=== PATIENT | male | born 1990 | race Caucasian/White ===

== ENCOUNTER 2016-08-18 08:01 | Inpatient (IN) | payer OTHER ==
--- NOTE | ~2016-08-18 | HP ---
Unit #: [id number] #: [id number] Patient: SILAS MINA [id number] [facility] [address] [facility]. [place], [place] [address] [id number] I MR#: [id number] NAME: SILAS MINA ROOM: 216 Age: 26 Sex: M Admission Date: 08/18/2016 : 1990 Attending Physician: Silvia Perez M.D. Primary Care Physician: Jennifer Redding M.D. HISTORY AND PHYSICAL CHIEF COMPLAINT Agitation, hallucination. HISTORY OF PRESENT ILLNESS Mr. Dowling is a 26-year-old male who is being evaluated in room 216 at [facility]. Patient is not able to provide any history. He does open his eyes but very agitated when he wakes up. Otherwise, he sleeps. Patient received Haldol and Ativan in [facility] ER, most likely that is why he is lethargic at this time. No family member in the room at this time. The history I know is from ER. The patient's father brought him to [facility] ER because of agitation and hallucination, has not been able to sleep, and excessive sweating. The patient was at [facility] for drug rehab. He was started on propranolol, possible tachycardia and also on Zoloft. The patient was discharged a week ago or so, although this information is per ER notes. I do not have any history at this time. PAST MEDICAL HISTORY 1. Polysubstance abuse. 2. Tobacco abuse. 3. Questionable tachycardia. HOME MEDICATIONS 1. Propranolol 10 mg t.i.d. 2. Zoloft 50 mg nightly. SOCIAL HISTORY Patient lives at home with his father. He does have a history of smoking one to two packs per day. No alcohol abuse. Patient does have a history of polysubstance abuse. PRIMARY CARE PROVIDER Dr. Redding. PAST SURGICAL HISTORY None. ALLERGIES No known drug allergies. FAMILY HISTORY Patient's father has history of alcohol abuse. He quit in 1995. REVIEW OF SYSTEMS Unit #: [id number] #: [id number] Patient: SILAS MINA Not obtainable at this time. PHYSICAL EXAMINATION GENERAL: Patient is lying in bed. There is no respiratory distress. He does wake up but becomes very agitated when he wakes up. He is not really answering any questions. VITAL SIGNS: Blood pressure is 105/50, respiratory rate 20, pulse 70, temperature 97.8, oxygen saturation is 100%. HEENT: Normocephalic. NECK: Supple. CHEST: Fair air entry. No additional sounds. CARDIOVASCULAR: S1, S2 positive. Regular rhythm. ABDOMEN: Soft. EXTREMITIES: Negative edema. CENTRAL NERVOUS SYSTEM: Patient is lethargic, most likely due to Ativan and Haldol. SKIN: Patient does have multiple excoriations all throughout the skin. DIAGNOSTIC STUDIES LABORATORY: WBC 28, hemoglobin 14.2, hematocrit 41.2, and platelet count 289,000. Sodium 141, potassium 2.8, chloride 104, BUN 24, creatinine 2. AST 126, ALT 125. Alcohol less than 5. CPK 3260. Troponin less than 0.5. Urinalysis shows 2+ bacteria. Urine drug screen is positive for amphetamines and opiates. IMAGING: Chest x-ray was done which shows no acute appearing bony abnormality. Heart size is normal. Lung volumes are normal. No airspace disease. CARDIOVASCULAR: EKG shows S1, S2 positive, seems to be regular rhythm. ASSESSMENT Patient is being admitted to med/surg unit at [facility] with a diagnosis of: 1. Acute renal failure. 2. Rhabdomyolysis. 3. Urinary tract infection. 4. Severe hypokalemia. 5. Agitation/hallucination. 6. Possible drug withdrawal. 7. Tobacco abuse. 8. History of polysubstance abuse. 9. Skin rash, possible neurodermatitis. PLAN Plan is admit to med/surg. IV Rocephin 1 g q.24 hours is being started. Blood cultures will be done. Urine culture is pending. Dr. Grimm is to be consulted. IV hydration will be started. Labs will be repeated tomorrow morning. Potassium protocol is being started. Dr. Grant is being consulted from drug withdrawal point of view. Home medications have been reviewed and adjusted. Will continue to observe closely. Please refer to progress note for further orders. Dictated by Silvia Perez M.D. Unit #: [id number] #: [id number] Patient: SILAS MINA SYED/hien TD: 08/18/2016 16:28 JOB #: [id number] HISTORY AND PHYSICAL Page 1 of 1 X Silvia Perez MD HISTORY AND PHYSICAL
--- NOTE | ~2016-08-18 | DS ---
Unit #: [id number] #: [id number] Patient: SILAS MINA [id number] [address] [address] [id number] I MR#: [id number] NAME: SILAS MINA ROOM: 216 Age: 26 Sex: M Admission Date: 08/18/2016 : 1990 Discharge Date: 08/22/2016 Attending Physician: Silvia Perez M.D. Primary Care Physician: Jennifer Redding M.D. DISCHARGE SUMMARY The patient left against medical advice. FINAL DIAGNOSES 1. Staph aureus bacteremia. 2. Acute renal failure. 3. Hypokalemia. 4. Multiple skin lesions, possible neurodermatitis. 5. Intravenous drug abuse. HOSPITAL COURSE The patient was admitted to hospital. The patient's father brought him to [facility] ER because of agitation and hallucination and has not been able to sleep and excessive sweating. The patient was admitted to Med/Surg unit and IV antibiotics were started. Infectious Disease was consulted. The patient has a history of polysubstance abuse, IV heroin. The patient had some acute kidney injury and rhabdomyolysis. IV fluids were started. The patient's blood cultures were positive for Staph aureus which was most likely related to his IV drug abuse. The patient was started on antibiotics. On 08/22/16, the patient signed out against medical advice. Dictated by... Emily Norton TD: 09/14/2016 11:19 JOB #: [id number] DISCHARGE SUMMARY Page 1 of 1 X Silvia Perez MD X DISCHARGE SUMMARY
--- NOTE | ~2016-08-18 | CO ---
Unit #: [id number] #: [id number] Patient: NITESH VILLA [id number] [facility] [address] [place], [place] [address] [id number] I MR#: [id number] NAME: NITESH VILLA ROOM: 216 Age: 26 Sex: M Admission Date: 08/18/2016 : 1990 Attending Physician: Silvia Perez M.D. Primary Care Physician: Jennifer Redding M.D. Consultation Date: 08/21/2016 CONSULTATION REPORT REASON FOR CONSULTATION Followup. DISCUSSION Mr. Nitesh Villa is a 26-year-old male seen in room 216 bed 1 on 08/21/16 at [facility]. Patient reported that he is feeling better, denied any hallucination or any thoughts of harming self or others, repots able to sleep good, decrease in anxiety/agitation, no side effects of medication. Patient was admitted with opiate withdrawal, rhabdomyolysis. A urine drug screen was positive for amphetamines and opiates. Patient was pleasant and cooperative during interview. Patient's vital signs are 98.5, 76, 18 and 120/80, oxygen saturation 99%. REVIEW OF SYSTEMS Complete review of systems is unremarkable. MENTAL STATUS EXAMINATION VITAL SIGNS: Please see above. GENERAL APPEARANCE: Patient dressed casually in hospital attire, pleasant and cooperative during interview. ATTENTION SPAN AND CONCENTRATION: Fair. SPEECH: A regular rate, coherent. ORIENTATION: Oriented in time, place and person. MOOD AND AFFECT: Sad, dysphoric, anxious. THOUGHT PROCESS: Coherent. THOUGHT CONTENT: Patient denied any thoughts of harming self or others. MEMORY: Recent and remote memory fair. LANGUAGE: Intact. FUND OF KNOWLEDGE: Fair to slightly impaired. DIAGNOSES 1. Opiate use disorder, severe, F11.20. 2. Psychosis, not otherwise specified, F29.0. ASSESSMENT/PLAN 1. Supportive psychotherapy and psychoeducation provided to patient. 2. Educated about benefits and side effects of medication and course and prognosis of illness. 3. Advised to continue with current medication. If needed consider further adjustment of medication. We will continue to follow. Please feel free to call if any question, telephone number [phone]. Unit #: [id number] #: [id number] Patient: NITESH VILLA Dictated by... Emily Jones/ysabel TD: 08/22/2016 16:47 JOB #: [id number] CONSULTATION REPORT Page 1 of 1 X Arvind Grant MD CONSULTATION REPORT
--- NOTE | ~2016-08-18 | CO ---
Unit #: [id number] #: [id number] Patient: SILAS VILLA [id number] [address] [place], [place] [address] [id number] I MR#: [id number] NAME: SILAS VILLA ROOM: 216 Age: 26 Sex: M Admission Date: 08/18/2016 : 1990 Attending Physician: Silvia Perez M.D. Primary Care Physician: Jennifer Redding M.D. CONSULTATION REPORT REASON FOR CONSULTATION Acute renal failure. HISTORY OF PRESENT ILLNESS This 26-year-old white male was brought in for mental status changes, agitation, presumed drug withdrawal. He presents in acute kidney injury with a creatinine of 2 and a potassium of 2.8. His urine shows white cells and blood and protein. He is unable to give any history because he has been medicated for his agitation and drug withdrawal. PAST MEDICAL HISTORY 1. Polysubstance abuse. 2. Tobacco abuse. HOME MEDICATIONS 1. Propranolol 10 mg t.i.d. 2. Zoloft 50 mg q. h.s. SOCIAL HISTORY The patient lives with his father. He smokes two packs per day, does not abuse alcohol but does abuse heroin and methamphetamine. He was in rehab roughly three weeks ago and was discharged and residing with father. PAST SURGICAL HISTORY None. ALLERGIES No known drug allergies. FAMILY HISTORY Negative for kidney disease. Father has a history of alcohol abuse and quit in 1995. REVIEW OF SYSTEMS Unobtainable. PHYSICAL EXAMINATION GENERAL: The patient is an overweight white male in no acute distress, snoring. VITAL SIGNS: Temperature is 98.4, heart rate is 80, blood pressure is 116/64. HEENT: Extraocular muscles are intact. No eye drainage or icterus. Oropharynx is clear. NECK: Supple without JVD, thyromegaly or carotid bruit. Unit #: [id number] #: [id number] Patient: SILAS VILLA CHEST: Without crackles. CARDIAC: S1, S2. Tachycardic. ABDOMEN: Soft, nontender, nondistended. Positive bowel sounds. EXTREMITIES: No cyanosis, clubbing or edema. SKIN: He has multiple sores. DIAGNOSTIC STUDIES LABORATORY DATA: BUN 24, creatinine 2.0, sodium 141, potassium 2.8, bicarbonate 24, calcium 9.3, albumin 4. AST 126, ALT 125, CK is 3260. Urinalysis shows pH of 5, specific gravity 1.03, nitrates negative, protein 1+, blood 2+, bacteria 1+, RBC 5-10, WBC 50-100, WBC casts 2-5. Hemoglobin is 14.2, white blood cell count 28, platelet count 289. ASSESSMENT AND PLAN 1. Acute kidney injury: The etiology is unclear. The patient may be experiencing drug withdrawal. He has no acid base disturbance but is hypokalemic. His CK is also elevated at 3260. BUN and creatinine are 2.0. He looks dry on exam. I agree with IV fluids. His urinalysis may be consistent with urinary tract infection versus an allergic interstitial nephritis. This will be monitored. Agree with IV Rocephin. Also, will order a renal ultrasound to evaluate kidney size and morphology. Embolic or septic emboli to the kidneys is also a possibility. 2. Hypokalemia: Will recheck BMP and mag now and replace accordingly. 3. Drug withdrawal: He has a history of heroin and methamphetamine use and actually was just in rehab three weeks ago. 4. Neurodermatitis. Thank you very much, Dr. Perez, for allowing me to see Mr. Villa in consultation. Will follow closely with you. Dictated by... Helena Hall M.D. CELESTINO/bello TD: 08/19/2016 08:57 JOB #: [id number] CONSULTATION REPORT Page 1 of 1 X Helena Hall MD CONSULTATION REPORT
--- NOTE | ~2016-08-18 | CO ---
Unit #: [id number] #: [id number] Patient: SILAS MINA [id number] [address] [address] [id number] I MR#: [id number] NAME: SILAS MINA ROOM: 216 Age: 26 Sex: M Admission Date: 08/18/2016 : 1990 Attending Physician: Silvia Perez M.D. Primary Care Physician: Jennifer Redding M.D. Consultation Date: 08/21/2016 CONSULTATION REPORT REASON FOR CONSULTATION Positive blood cultures. HISTORY OF PRESENT ILLNESS This is a 26-year-old male who is unable to provide significant history for why he came to the hospital. He reports that the last 2 days have "been a blur." The patient reports he notes he was not feeling well. He also reports that he has history of methamphetamine use and IV heroin use. The patient's workup included blood cultures, where he is now showing 1 of 2 positive blood cultures for Staphylococcus aureus, and ID was asked to evaluate. Per the H and P, patient was brought to the emergency room by family due to agitation and hallucination with excessive sweating. There was report that the patient was in a [facility] hospital for drug rehab. PAST MEDICAL HISTORY 1. Polysubstance abuse. 2. Tobacco abuse. 3. Tachycardia. ALLERGIES No known allergies. MEDICATIONS The patient is currently on Rocephin. For other medications, please refer to the patient's MAR. SOCIAL HISTORY Patient lives with his family. He does report positive smoking. No alcohol. Positive IV heroin abuse and methamphetamine abuse. REVIEW OF SYSTEMS The patient currently reports that he feels back to his normal self at this time. He denies any fevers, chills, shortness of breath, cough, abdominal pain but cannot report how he felt when he initially came into the hospital. PHYSICAL EXAMINATION VITAL SIGNS: Temperature is 98.6 with no documented fever since admission. Pulse is 69, blood pressure 125/77, respiratory rate 20. GENERAL: This is a well-nourished male, in no apparent distress who is resting in the bed, easily awakens to voice when we enter the room. HEENT: Pupils are equal. NECK: Neck is supple. Unit #: [id number] #: [id number] Patient: SILAS MINA CARDIOVASCULAR: S1, S2 with no murmur appreciated. PULMONARY: Clear to auscultation bilaterally with no wheezes or rhonchi noted. ABDOMEN: Positive bowel sounds. Soft and nontender. EXTREMITIES: No clubbing, cyanosis or edema. Patient is noted to have some scattered healing lesions on both his arms and lower extremities with no evidence of abscess or purulent drainage. DIAGNOSTIC STUDIES LABS: BUN less than 5, creatinine 0.6, sodium 143, potassium 3.2, chloride 116, CO2 22, bilirubin 1.7, AST 80, ALT 97. Lactic acid on admission was 1.3. CK total on admission was 3,260 and has improved to 618. Procalcitonin 0.14. INR 1.3. White blood cell count 7.7, which is improved from admission of 28,000, hemoglobin 10.9, hematocrit 32.1, platelets 226. Urinalysis - White blood cell count was 50-100 with 1+ bacteria, negative nitrites. MICROBIOLOGY: Blood cultures on 08/18 show 1 of 4 with Staphylococcus aureus. Final ID pending. Urine culture is negative. DIAGNOSTIC IMAGING: CT scan of the chest. Please see full report for complete details. In summary, there is a 3-mm noncalcified nodule within the right lower lobe. No acute airspace disease or lung consolidation. IMPRESSION This is a 26-year-old male with history of polysubstance abuse, including IV heroin, who came to the hospital with confusion. He is unaware of what brought him here or what has happened in the last few days since the hospital. Patient appears to have had some acute kidney injury with rhabdomyolysis and now shows positive blood cultures with Staphylococcus aureus. This is likely related to his IV drug abuse. At this time, will recommend to change his Rocephin to vancomycin and follow the final ID of the Staphylococcus aureus in the blood. Will repeat blood cultures x2 30 minutes apart. Will check a two-D echocardiogram to evaluate for endocarditis and continue to follow the patient's lab work. Patient's acute kidney injury appears to have been resolved, and his CK total is also improving. Thank you for allowing us to participate in the care of this patient. Further recommendations to follow pending the patient's clinical course. Dictated by... Kiara Naik A.P.R.N. for Emily Parmar TD: 08/21/2016 10:14 JOB #: [id number] Unit #: [id number] #: [id number] Patient: SILAS MINA CONSULTATION REPORT Page 1 of 1 X X CONSULTATION REPORT
--- NOTE | ~2016-08-18 | EKG ---
PATIENT: SILAS MINA UNIT #: [id number] Ventricular Rate: 57 BPM Atrial Rate: 57 BPM P-R Interval: 154 ms QRS Duration: 92 ms Q-T Interval: 464 ms QTC Calculation(Bezet): 451 ms P Hammond: 36 degrees Calculated R Hammond: 26 degrees Calculated T Hammond: 16 degrees Diagnosis Line: Sinus bradycardia Diagnosis Line: Otherwise normal ECG Diagnosis Line: When compared with ECG of 16-APR-2012 20:12, Diagnosis Line: Vent. rate has decreased BY 43 BPM Diagnosis Line: T wave amplitude has increased in Lateral leads Diagnosis Line: Confirmed by ROBIN LEYVA MD ([id number]) on Diagnosis Line: 08/18/2016 3:24:53 PM INTERPRETING MD: AUTUMN LOZANO
--- NOTE | ~2016-08-18 | US77 ---
[facility] A Service of [facility] RADIOLOGY TEXT RESULTS PATIENT: SILAS MINA LOCATION: [facility] : 88 UNIT #: [id number] AGE: [address]: Silvia Perez MD SEX: M ORDER DR: [id number] [facility] [address] [facility]. [place], [place] [address] [id number] I MR#: [id number] Acc #: [id number] NAME: SILAS MINA : 1990 SEX: M STUDY DATE/TIME: 08/18/2016 18:48 UNIT: [facility] ROOM: [facility] STUDY DESCRIPTION: US Kidney Bilateral Complete Attending Physician: Silvia Perez M.D. Ordering Physician: Helena Hall M.D. Primary Care Physician: Jennifer Redding M.D. MEDICAL IMAGING REPORT This report is preliminary unless electronic signature is present EXAM Renal ultrasound, 08/18 at 18:48 INDICATION Low GFR with an elevated creatinine of 2.0. Urinary tract infection. FINDINGS Sonographic evaluation is performed of the kidneys in multiple planes. Comparison made with CT abdomen from 03/06/2014. The right kidney measures at least 9.5 cm in oreh-yl-rbqo length. Left kidney measures about 9.8 cm in olyg-ki-sazb length. Both are morphologically normal and nonobstructed. There is fatty infiltration of the liver. The bladder is normal. IMPRESSION 1. Normal nonobstructed kidneys. 2. Fatty liver. Dictated by... Jeremy Bernal Jr., M.D. THIS IS AN ELECTRONICALLY VERIFIED REPORT Jeremy Bernal Jr., M.D. at 08/19/2016 7:37 AM GELY/viktoriya TD: 08/19/2016 05:32 JOB #: [id number] MEDICAL IMAGING REPORT [facility] A Service of [facility] RADIOLOGY TEXT RESULTS PATIENT: SILAS MINA LOCATION: [facility] : 89 UNIT #: [id number] AGE: [address]: Silvia Perez MD SEX: M ORDER DR: Page 1 of 1 COPY
--- NOTE | ~2016-08-18 | CR72 ---
[facility] A Service of [facility] RADIOLOGY TEXT RESULTS PATIENT: SILAS MINA LOCATION: [place] : 88 UNIT #: [id number] AGE: [address]: Silvia Perez MD SEX: M ORDER DR: [id number] [place] [id number] I MR#: [id number] Acc #: [id number] NAME: SILAS MINA : 1990 SEX: M STUDY DATE/TIME: 08/18/2016 10:36 UNIT: SEDOF ROOM: [facility] STUDY DESCRIPTION: CR Chest Single View Portable Attending Physician: Silvia Perez M.D. Ordering Physician: Jacqui Kerr M.D. Primary Care Physician: Jennifer Redding M.D. MEDICAL IMAGING REPORT This report is preliminary unless electronic signature is present. EXAM Portable chest x-ray 08/18/2016 HISTORY Short of breath, altered mental status, allergic reaction, possible drug overdose TECHNIQUE AP, right anterior oblique view of the chest is presented. COMPARISON 01/03/2014 FINDINGS No acute appearing bony abnormality. Heart probably normal in size given lung volumes. The lung volumes are low. There is bronchovascular crowding centrally and there is mild central vascular prominence which may simply reflect the low lung volumes. Correlate with any clinical concern for vascular congestion. There is no dense airspace disease, pleural effusion or pneumothorax. No suspicious nodule. The lungs could best be further evaluated by repeat examination at full inspiration. Dictated by... Aaron Hernandez M.D. THIS IS AN ELECTRONICALLY VERIFIED REPORT Aaron Hernandez M.D. at 08/19/2016 5:58 PM JSK/to TD: 08/18/2016 12:39 [facility] A Service [facility] RADIOLOGY TEXT RESULTS PATIENT: SILAS MINA LOCATION: [place] : 89 UNIT #: [id number] AGE: [address]: Silvia Perez MD SEX: M ORDER DR: JOB #: [id number] MEDICAL IMAGING REPORT Page 1 of 1
--- NOTE | ~2016-08-18 | CO ---
Unit #: [id number] #: [id number] Patient: NITESH VILLA [id number] [facility] [address] [facility]. [place], [place] [address] [id number] I MR#: [id number] NAME: NITESH VILLA ROOM: 216 Age: 26 Sex: M Admission Date: 08/18/2016 : 1990 Attending Physician: Silvia Perez M.D. Primary Care Physician: Jennifer Redding M.D. Consultation Date: 08/20/2016 CONSULTATION REPORT REASON FOR CONSULTATION Heroin/ice abuse, anxious, guarded, withdrawal. HISTORY OF PRESENT ILLNESS Nitesh Villa is a 26-year-old male seen in room 216 bed-1 on 08/20/16 at [facility]. Patient reported that he was admitted due to heroin and ice IV drug abuse. He was diagnosed with rhabdomyolysis. Patient was agitated, had hallucination, tremor, anxiety. Patient received Haldol and Ativan at the [facility] emergency room. Patient is still having anxiety, agitation, paranoia, mood lability, excessive sweating, withdrawals from medications. Currently denied any suicidal or homicidal ideation but having above-mentioned symptoms. PAST PSYCHIATRIC HISTORY Remarkable for history of depression, history of substance abuse as mentioned above. No history of any inpatient admission. No history of any suicide attempt. MEDICAL HISTORY AND MEDICATION HISTORY 1. History of tachycardia. 2. Polysubstance abuse. Medications - the patient is on: 1. Protonix. 2. Vancomycin. FAMILY HISTORY/SOCIAL HISTORY The patient reports a poor support system from family. No history of abuse. History of substance abuse as mentioned above. REVIEW OF SYSTEMS Complete review of systems is remarkable for unsteadiness of gait, restlessness, anxiety, paranoia, mood lability. MENTAL STATUS EXAMINATION VITAL SIGNS: 98.6, 94, 16, 124/84. Oxygen saturation 100%. GENERAL APPEARANCE: Patient dressed in hospital attire. Attention span and concentration poor. Speech - somewhat slurred, was slow in volume and rate. Orientation in place and person. Mood and affect labile. Thought process circumstantial. Thought content - guarded, paranoid. Denied any thoughts of harming self or others. Recent and remote memory fair to poor. Language - fair. Fund of knowledge fair. Insight and judgment fair to slightly impaired. Unit #: [id number] #: [id number] Patient: NITESH VILLA DIAGNOSES PSYCHIATRIC: 1. Opiate use disorder, severe - F11.20. 2. Major depressive disorder, recurrent, severe - F33.0. 3. Psychosis, not otherwise specified - F49.0. SECONDARY DIAGNOSIS Deferred. MEDICAL DIAGNOSIS Please refer to H and P. STRESSORS Psychosocial stressor. ASSESSMENT/PLAN 1. Supportive psychotherapy and psychoeducation provided to patient. 2. Educated about benefits and side effects of medications and course and prognosis of illness. 3. Patient has p.r.n. Haldol available. If needed, consider using that. Advised Desyrel 100 mg at bedtime for sleep, Requip 1 mg twice daily for restlessness of leg, Vistaril 50 mg three times a day for anxiety and Neurontin 300 mg three times a day for the withdrawal symptoms. If needed, consider further additional medication. Please feel free to call if any questions. Telephone number [phone]. Dictated by... Emily Jones/bello TD: 08/21/2016 07:50 JOB #: [id number] CONSULTATION REPORT Page 1 of 1 X Arvind Grant MD X CONSULTATION REPORT
--- NOTE | ~2016-08-18 | XA166 ---
[facility] A Service of [facility] & [facility] RADIOLOGY TEXT RESULTS PATIENT: SILAS MINA LOCATION: C2A - : 89 UNIT #: [id number] AGE: [address]: Silvia Perez MD SEX: M ORDER DR: [id number] [facility]. [place], [place] [address] [id number] MR#: [id number] Acc #: [id number] NAME: SILAS MINA : 1990 SEX: M STUDY DATE/TIME: 08/19/2016 8:26 UNIT: C2A ROOM: 216 STUDY DESCRIPTION: XA PICC Line Placement WO Port Attending Physician: Silvia Perez M.D. Ordering Physician: Helena Hall M.D. Primary Care Physician: Jennifer Redding M.D. MEDICAL IMAGING REPORT This report is preliminary unless electronic signature is present EXAM PICC line placement INDICATION IV access. PRE-PROCEDURE The procedure was explained to the patient and/or patient marketing representative including risks, benefits, potential complications and potential for alternative forms of treatment. Informed consent was obtained, and prior to initiating the procedure a formal timeout procedure was performed. PROCEDURE Using full standard sterile barrier technique, including caps, gowns, gloves, masks, as well as sterile skin preparation and standard sterile draping, the right arm was prepped and draped in the usual fashion, and real-time sterile ultrasound guidance was used to localize an arm vein and to confirm vessel patency. A hard copy ultrasound image was recorded. After local anesthesia with 1% Xylocaine, the basilic vein was punctured using real-time sterile ultrasound guidance, and an 0.018 guidewire was advanced into the superior vena cava, using fluoroscopic guidance. A 5-[place] double-lumen PICC was then measured to 39 cm and deployed with the tip positioned in the superior vena cava. The position of the line was documented with a radiographic image. The line was secured in place with an adhesive dressing and an antibiotic patch was applied. Total fluoro time was 0.1 minutes. Reference air kerma 5 mGy. IMPRESSION Successful right arm PICC line placement. [facility]. [facility] A Service of [facility] & [facility] RADIOLOGY TEXT RESULTS PATIENT: SILAS MINA LOCATION: [facility] 216-01 : [birth year] UNIT #: [id number] AGE: [address]: Silvia Perez MD SEX: M ORDER DR: Dictated by... Francisco Javier Torres M.D. THIS IS AN ELECTRONICALLY VERIFIED REPORT Francisco Javier Torres M.D. at 08/20/2016 7:15 AM REMEDIOS/viktoriya TD: 08/19/2016 23:48 JOB #: [id number] MEDICAL IMAGING REPORT Page 1 of 1 COPY
--- NOTE | ~2016-08-18 | CT57 ---
[facility] A Service of [facility] RADIOLOGY TEXT RESULTS PATIENT: SILAS MINA LOCATION: [facility] : 89 UNIT #: [id number] AGE: [address]: Silvia ePrez MD SEX: M ORDER DR: [id number] [facility]. [place], [place] [address] [id number] MR#: [id number] Acc #: [id number] NAME: SILAS MINA : 1990 SEX: M STUDY DATE/TIME: 08/19/2016 17:05 UNIT: [facility] ROOM: 216 STUDY DESCRIPTION: CT Chest Wo Cont Attending Physician: Silvia Perez M.D. Ordering Physician: Aurelio Lester M.D. Primary Care Physician: Jennifer Redding M.D. MEDICAL IMAGING REPORT This report is preliminary unless electronic signature is present EXAM CT chest without contrast DATE: 08/19/2016 HISTORY 26-year-old male with Cough and shortness of breath for 2 days. History of drug abuse. Asthma. COMPARISON AP portable chest 08/18/2016 at 10:36. No prior CT chest at this institution for comparison. PROCEDURE 5 mm noncontrast axial images through the chest. Sagittal and coronal reformatted images were obtained. This CT exam was performed with one or more of the following radiation dose reduction techniques: automatic exposure control, adjustment of mA and/or kV according to patient size, and iterative reconstruction. FINDINGS No dense lung consolidations are identified. A noncalcified nodule is demonstrated within the right lower lobe adjacent to the major fissure, measuring approximately 3 mm (series 4 image 33). No pericardial effusion. No pleural effusion. No pathologic adenopathy. Right arm approach PICC extends to the upper SVC. Normal heart size. Included portions of the upper abdominal organs have normal noncontrast appearance. No acute or suspicious osseous abnormalities. IMPRESSION [facility] A Service of [facility] RADIOLOGY TEXT RESULTS PATIENT: SILAS MINA LOCATION: [place] : 89 UNIT #: [id number] AGE: [address]: Silvia Perez MD SEX: M ORDER DR: 1. A 3 mm noncalcified nodule is present within the right lower lobe. Given that this has a low risk patient (no documented history of malignancy or risk factors for malignancy), no further followup would be warranted according to the Fleischner's Society criteria for pulmonary nodule management. 2. No acute airspace disease or lung consolidations. Dictated by... Kelsea Diaz M.D. THIS IS AN ELECTRONICALLY VERIFIED REPORT Kelsea Diaz M.D. at 08/20/2016 4:08 PM MANISH/viktoriya TD: 08/20/2016 04:12 JOB #: [id number] MEDICAL IMAGING REPORT Page 1 of 1 COPY
[~2016-08-18 08:01] MED LIST: ACULAR10 ML OS; ALBUTEROL MININEB; ALBUTEROL17 GM; ALBUTEROL17 GM INH; AMOXICILLIN500 M1 PO; BENTYL20 MG PO; BENZONATATE PO; DICLOFENAC; ERYTHROMYCIN O3.5 G1 OS; FLEXERIL; FLEXERIL PO; FLEXERIL10 M1 PO; FLEXERIL10 MG PO; GABAPENTIN300 M2 PO; IBUPROFEN800 MG PO; KADIAN20 MG PO; LOMOTIL TABLET1 TAB PO; LOTRIMIN 1% CR30 GM EXT; MONTELUKAST SOD10 MG PO; MUCINEX100 MG/5 M; NAMENDA10 MG; NAPROSYN500 MG PO; NO MEDICATIONS; OXYCODON-ACETA1 EAC1; OXYMORPHONE HCL PO; PERCOCET 7.5-31 EACH PO; PHENERGAN DM1 ML PO; PHENERGAN W/CO120 ML PO; PHENERGAN25 MG PO; PREDNISONE PO; PREVACID PO; PROTONIX PO; ROBAXIN500 MG PO; SYMBICORT INH; TYLENOL #3 PO; VIBRAMYCIN100 M1 PO; VOLTAREN75 MG PO; ZANTAC150 MG PO; ZOFRAN ODT4 MG PO; ZOFRAN ODT4 MG SL; ZYRTEC10 M2 PO
[2016-08-18] MEDS ORDERED: PROPRANOLOL PO (08:09)
[2016-08-18] MEDS ORDERED: SERTRALINE HCL50 MG PO (08:10)
[2016-08-18] MEDS ORDERED: TRAZODONE PO (08:10)
[2016-08-18] MEDS ORDERED: IBUPROFEN PO (08:10)
[2016-08-18 09:01] LABS: BASOPHIL# 0.2 X10e3 (0-0.3); BASOPHIL% 0.8 % (0-2.5); EOSINOPHIL% 0.1 % (0.0-7.0); HEMATOCRIT 41.2 % (38.0-50.0); HEMOGLOBIN 14.2 gm/dL (13.0-16.0); LYMPHOCYTE# 2.8 X10e3 (1.0-3.5); MEAN CELL VOLUME 81.7 FL (83-96); MEAN CORPUSCULAR HEMOGLOBIN 28.1 PG (28-34); MEAN CORPUSCULAR HGB CONC 34.4 g/dL (30-36); MEAN PLATELET VOLUME 7.3 FL (6.5-11.5); MONOCYTE# 1.4 X10e3 (0-1.0); MONOCYTE% 5.1 % (3.0-12.0); NEUTROPHIL# 23.5 X10e3 (1.5-7.1); PLATELET COUNT 289 X10e3 (140-420); RED BLOOD COUNT 5.05 X10e (3.90-5.60); RED CELL DISTRIBUTION WIDTH 14.3 % (11.0-15.5)
[2016-08-18 09:03] LABS: DIFF IND YES
[2016-08-18 09:33] LABS: PLATELET ESTIMATE NORMAL (NORMAL)
[2016-08-18 09:34] LABS: RBC NORMAL YES
[2016-08-18 09:35] LABS: ALKALINE PHOSPHATASE 88 U/L (32-92); ALT (SGPT) 125 U/L (10-40); AST (SGOT) 126 U/L (10-42); BILIRUBIN, DIRECT 0.6 mg/dL (0.0-0.2); BILIRUBIN,INDIRECT 1.4 mg/dL (0.0-0.9); BLOOD UREA NITROGEN 24 mg/dL (9-23); CALCIUM SERUM 9.3 mg/dL (8.4-10.2); CARBON DIOXIDE 24 mmol/L (22-31); CHLORIDE 104 mmol/L (100-111); GLOM FILT RATE Estimated 44.4 mL/min (>60); GLUCOSE FASTING 136 mg/dL (70-110); PROTEIN TOTAL SERUM 7.7 g/dL (6.0-8.3); SODIUM 141 mmol/L (135-145)
[2016-08-18 09:36] LABS: ALCOHOL BLOOD <5 mg/dL (0); POTASSIUM 2.8 mmol/L (3.5-5.1)
[2016-08-18 10:22] LABS: INR 1.3; PROTHROMBIN TIME (PATIENT) 15.2 SECONDS (9.5-12.4)
[2016-08-18 10:30] LABS: PARTIAL THROMBOPLASTIN TIME 27.9 SECONDS (25.6-38.1)
[2016-08-18 10:47] LABS: POC - CKMB 13.9 ng/mL (0.0-7.9); POC - TROPONIN <0.05 ng/mL (<=0.05)
[2016-08-18 10:52] LABS: URINE SOURCE CLEAN CATCH
[2016-08-18 10:55] LABS: URINE APPEARANCE HAZY; URINE BLOOD 2+ (NEG); URINE COLOR DK YELLOW; URINE GLUCOSE NEG (NORM); URINE KETONE NEG (NEG); URINE LEUKOCYTE ESTERASE NEG (NEG); URINE NITRATE NEG (NEG); URINE PROTEIN 1+ (NEG); URINE SPECIFIC GRAVITY >=1.030 (1.003-1.035)
[2016-08-18 11:00] LABS: MICRO INDICATED? YES; URINE BILIRUBIN NEG (NEG)
[2016-08-18 11:01] LABS: CULTURE INDICATED? YES; URINE BACTERIA 1+ (NEG); URINE SQUAMOUS EPITHELIAL CELL FEW /[HPF]; URINE TRANSITIONAL EPI CELLS FEW /[HPF]; URINE WBC 50-100 /[HPF] (0-5)
[2016-08-18 11:02] LABS: URINE HYALINE CAST 0-2 /[HPF]; URINE MUCUS PRESENT
[2016-08-18 11:18] LABS: AMPHETAMINE POS (NEG); BARBITURATES NEG (NEG); BENZODIAZEPINES NEG (NEG); COCAINE NEG (NEG); MARIJUANA NEG (NEG); OPIATES POS (NEG); TRICYCLIC ANTIDEPRESSANTS NEG (NEG); U METHADONE NEG (NEG)
[2016-08-18 20:55] LABS: BUN/CREATININE RATIO 22.22; CALCIUM SERUM 8.2 mg/dL (8.4-10.2); CREATININE SERUM 0.9 mg/dL (0.6-1.4); GLOM FILT RATE Estimated 116.6 mL/min (>60); MAGNESIUM 1.7 mg/dL (1.6-3.0); POTASSIUM 3.6 mmol/L (3.5-5.1)
[2016-08-19 07:01] LABS: MEAN CELL VOLUME 82.3 FL (83-96); MEAN CORPUSCULAR HEMOGLOBIN 27.5 PG (28-34); MEAN CORPUSCULAR HGB CONC 33.5 g/dL (30-36); MEAN PLATELET VOLUME 7.9 FL (6.5-11.5); RED BLOOD COUNT 4.26 X10e (3.90-5.60); RED CELL DISTRIBUTION WIDTH 14.6 % (11.0-15.5); WHITE BLOOD COUNT 14.6 X10e3 (4.0-10.5)
[2016-08-19 07:24] LABS: HEMOGLOBIN 11.7 gm/dL (13.0-16.0)
[2016-08-19 07:37] LABS: BILIRUBIN,TOTAL 1.7 mg/dL (0.2-2.0); CALCIUM SERUM 7.9 mg/dL (8.4-10.2); CREATININE SERUM 0.7 mg/dL (0.6-1.4); GLOM FILT RATE Estimated 129.4 mL/min (>60); MAGNESIUM 1.6 mg/dL (1.6-3.0); POTASSIUM 3.1 mmol/L (3.5-5.1); PROTEIN TOTAL SERUM 6.2 g/dL (6.0-8.3)
[2016-08-20 05:50] LABS: HEMATOCRIT 31.8 % (38.0-50.0); MEAN CORPUSCULAR HEMOGLOBIN 28.2 PG (28-34); MEAN CORPUSCULAR HGB CONC 34.4 g/dL (30-36); MEAN PLATELET VOLUME 7.8 FL (6.5-11.5); RED BLOOD COUNT 3.88 X10e (3.90-5.60); WHITE BLOOD COUNT 10.7 X10e3 (4.0-10.5)
[2016-08-20 06:35] LABS: PROCALCITONIN 0.27 NG/ML
[2016-08-20 07:00] LABS: BUN/CREATININE RATIO 8.33; CALCIUM SERUM 7.8 mg/dL (8.4-10.2); CREATININE SERUM 0.6 mg/dL (0.6-1.4); GLOM FILT RATE Estimated 137.8 mL/min (>60); MAGNESIUM 1.5 mg/dL (1.6-3.0)
[2016-08-20 14:26] LABS: URINE APPEARANCE CLEAR; URINE BILIRUBIN NEG (NEG); URINE BLOOD NEG (NEG); URINE COLOR DK YELLOW; URINE GLUCOSE NEG (NEG); URINE KETONE NEG (NEG); URINE LEUKOCYTE ESTERASE NEG (NEG); URINE NITRATE NEG (NEG); URINE PH 5.5 (5-8); URINE PROTEIN NEG (NEG); URINE SPECIFIC GRAVITY 1.022 (1.003-1.035); URINE UROBILINOGEN 0.2 MG/DL (NEG)
[2016-08-20 23:45] LABS: COMPLEMENT C3 132 mg/dL (90-180); COMPLEMENT C4 15 mg/dL (16-47)
[2016-08-21 06:06] LABS: HEMATOCRIT 32.1 % (38.0-50.0); HEMOGLOBIN 10.9 gm/dL (13.0-16.0); MEAN CELL VOLUME 82.4 FL (83-96); MEAN CORPUSCULAR HEMOGLOBIN 28.1 PG (28-34); MEAN PLATELET VOLUME 7.7 FL (6.5-11.5); RED BLOOD COUNT 3.89 X10e (3.90-5.60); RED CELL DISTRIBUTION WIDTH 14.5 % (11.0-15.5); WHITE BLOOD COUNT 7.7 X10e3 (4.0-10.5)
[2016-08-21 07:16] LABS: BLOOD UREA NITROGEN <5 mg/dL (9-23); BUN/CREATININE RATIO 8.33; CARBON DIOXIDE 22 mmol/L (22-31); CHLORIDE 116 mmol/L (100-111); CREATININE SERUM 0.6 mg/dL (0.6-1.4); GLOM FILT RATE Estimated 137.8 mL/min (>60); GLUCOSE FASTING 113 mg/dL (70-110); MAGNESIUM 1.8 mg/dL (1.6-3.0); POTASSIUM 3.2 mmol/L (3.5-5.1); SODIUM 143 mmol/L (135-145)
[2016-08-21 07:29] LABS: PROCALCITONIN 0.14 NG/ML
[2016-08-22 05:40] LABS: HEMATOCRIT 32.9 % (38.0-50.0); HEMOGLOBIN 11.3 gm/dL (13.0-16.0); MEAN CELL VOLUME 82.7 FL (83-96); MEAN CORPUSCULAR HEMOGLOBIN 28.4 PG (28-34); MEAN CORPUSCULAR HGB CONC 34.4 g/dL (30-36); MEAN PLATELET VOLUME 7.4 FL (6.5-11.5); RED BLOOD COUNT 3.99 X10e (3.90-5.60); RED CELL DISTRIBUTION WIDTH 14.6 % (11.0-15.5); WHITE BLOOD COUNT 6.8 X10e3 (4.0-10.5)
[2016-08-22 06:32] LABS: CALCIUM SERUM 8.4 mg/dL (8.4-10.2); CARBON DIOXIDE 23 mmol/L (22-31); CHLORIDE 113 mmol/L (100-111); CREATININE SERUM 0.7 mg/dL (0.6-1.4); GLOM FILT RATE Estimated 129.4 mL/min (>60); GLUCOSE FASTING 80 mg/dL (70-110); POTASSIUM 3.6 mmol/L (3.5-5.1); SODIUM 142 mmol/L (135-145)
[2016-08-22 06:40] LABS: BLOOD UREA NITROGEN <5 mg/dL (9-23); BUN/CREATININE RATIO 7.14
== END 2016-08-22 14:51 | disposition left against medical advice (07) | DRG 683 ==
LOC: SED 08:01 → CEDOF 11:52 → C2A 12:00 → CEDOF 12:00 → SEDOF 12:21 → CEDOF 12:21 → SEDOF 15:47 → CEDOF 15:47 → C2A 15:50
PROVIDERS: Hospitalist; Internal Medicine Nephrology; Nurse Practitioner Family; Physician Assistant Medical; Student in an Organized Health Care Education/Training Program
PROC: 02HV33Z Insertion of Infusion Device into Superior Vena Cava, Percutaneous Approach (ICD-10-PCS; principal; 2016-08-19)
PROC: B5181ZA Fluoroscopy of Superior Vena Cava using Low Osmolar Contrast, Guidance (ICD-10-PCS; 2016-08-19)
PROC: 02HV33Z Insertion of Infusion Device into Superior Vena Cava, Percutaneous Approach (ICD-10-PCS; 2016-08-19)
PROC: B24BZZZ Ultrasonography of Heart with Aorta (ICD-10-PCS; 2016-08-21)
DX: N17.9 Acute kidney failure, unspecified (principal); M62.82 Rhabdomyolysis; F33.2 Major depressive disorder, recurrent severe without psychotic features; Z68.41 Body mass index [BMI] 40.0-44.9, adult; F11.20 Opioid dependence, uncomplicated; E66.01 Morbid (severe) obesity due to excess calories; N39.0 Urinary tract infection, site not specified; F19.939 Other psychoactive substance use, unspecified with withdrawal, unspecified; E87.6 Hypokalemia; L28.0 Lichen simplex chronicus; F17.210 Nicotine dependence, cigarettes, uncomplicated; F15.10 Other stimulant abuse, uncomplicated; F29 Unspecified psychosis not due to a substance or known physiological condition; B95.61 Methicillin susceptible Staphylococcus aureus infection as the cause of diseases classified elsewhere
CPT/HCPCS: 36415; 51701; 71010; 71250; 76770; 76937; 77001; 80048; 80053; 80076; 80307; 81003; 82308; 82550; 82553; 83605; 83735; 84132; 84484; 85025; 85027; 85610; 85730; 86160; 87040; 87077; 87086; 87186; 93005; 93306; 96361; 96374; 96375; 96376; 99284; C1751; C9113; G0480; J0696; J1200; J1630; J2060; J3370; J3475